=== PATIENT | male | born 1995 | race Caucasian/White ===

== ENCOUNTER 2018-01-14 00:58 | Emergency (ER) | payer OTHER ==
[2018-01-14] MEDS ORDERED: cloNIDine HCl 0.1 MG TAB ONE (01:18)
[2018-01-14] MEDS ORDERED: AMLODIPINE 5 MG TAB ONE (01:19)
--- NOTE | 2018-01-14 02:11 | ER ---
Nurse's Notes [facility] Name: Yahir Kinney Age: 22 yrs Sex: Male : 1995 Arrival Date: 01/14/2018 Time: 00:59 Bed 8 Private MD: Diagnosis: Hypertensive heart disease Presentation: 01/14 01:10 Presenting complaint: Patient states: "I had blood pressure for the past few years. ao Today I felt like my blood pressure is high and I decided to come to the ER.". Transition of care: patient was not received from another setting of care. Onset of symptoms is unknown. Risk Assessment: Do you want to hurt yourself or someone else? Patient reports no desire to harm self or others. Initial Sepsis Screen: Does the patient meet any 2 criteria? No. Patient's initial sepsis screen is negative. Does the patient have a suspected source of infection? No. Patient's initial sepsis screen is negative. Care prior to arrival: None. 01:10 Method Of Arrival: Ambulatory ao 01:10 Acuity: LIZZY 3 ao Historical: - Allergies: 01:47 No Known Allergies; ao - Home Meds: 01:14 None [Active]; ao - PMHx: 01:14 Hypertension; ao - PSHx: 01:14 None; ao - Immunization history:: Adult Immunizations up to date. - Social history:: Smoking status: Patient/guardian denies using tobacco, Patient uses alcohol, occasionally. Patient/guardian denies using street drugs. - Ebola Screening: : Patient negative for fever greater than or equal to 101.5 degrees Fahrenheit, and additional compatible Ebola Virus Disease symptoms Patient denies exposure to infectious person Patient denies travel to an Ebola-affected area in the 21 days before illness onset. Screenin:14 Abuse screen: Denies threats or abuse. Denies injuries from another. Nutritional ao screening: No deficits noted. Tuberculosis screening: No symptoms or risk factors identified. Fall Risk None identified. Assessment: 01:15 General: Appears in no apparent distress. comfortable, Behavior is calm, cooperative, ao appropriate for age. Pain: Denies pain. Neuro: Level of Consciousness is awake, alert, obeys commands, Oriented to person, place, time, situation, Appropriate for age Moves all extremities. Speech is normal, Facial symmetry appears normal, Pupils are PERRLA. Cardiovascular: Capillary refill < 3 seconds Patient's skin is warm and dry. Respiratory: Airway is patent Trachea midline Respiratory effort is even, unlabored, Respiratory pattern is regular, symmetrical. GI: Abdomen is flat, non-distended. : No signs and/or symptoms were reported regarding the genitourinary system. EENT: No signs and/or symptoms were reported regarding the EENT system. Derm: No signs and/or symptoms reported regarding the dermatologic system. Musculoskeletal: No signs and/or symptoms reported regarding the musculoskeletal system. 02:05 Reassessment: Patient appears in no apparent distress at this time. No changes from ak1 previously documented assessment. Patient is alert, oriented x 3, equal unlabored respirations, skin warm/dry/pink. 02:19 Reassessment: DC instructions given to patient. Patient understand the POC and to ao follow up with a PCP. Patient agree to follow up and continue with blood pressure medications regime. Vital Signs: 01:12 BP 168 / 124; Pulse 60; Resp 16; Temp 97.8(O); Pulse Ox 100% on R/A; Weight 74.84 kg; ao Height 6 ft. 0 in. (182.88 cm) (R); Pain 0/10; 01:40 BP 150 / 112; ak1 02:06 BP 133 / 104; Pulse 61; Resp 16; Pulse Ox 97% on R/A; ak1 02:19 BP 133 / 104; Pulse 61; Resp 14; Pulse Ox 97% on R/A; Pain 0/10; ao 01:12 Body Mass Index 22.38 (74.84 kg, 182.88 cm) ao ED Course: 00:59 Patient arrived in ED. es 01:03 Ravi Lewis PA is PHCP. cp 01:03 Leonardo Wilson MD is Attending Physician. cp 01:10 Benny Murray, DEMARCO is Primary Nurse. ao 01:12 Triage completed. ao 01:14 Arm band placed on right wrist. ao 01:16 Patient has correct armband on for positive identification. Pulse ox on. NIBP on. ao 02:21 No provider procedures requiring assistance completed. Patient did not have IV access ao during this emergency room visit. Administered Medications: 01:20 Drug: cloNIDine 0.2 mg Route: PO; ak1 02:22 Follow up: Response: Blood pressure is lowered ao 01:20 Drug: Norvasc 10 mg Route: PO; ak1 02:22 Follow up: Response: No adverse reaction; Blood pressure is lowered ao Outcome: 02:11 Discharge ordered by . marty 02:21 Discharged to home ambulatory. ao 02:21 Condition: stable 02:21 Discharge instructions given to patient, Instructed on discharge instructions, follow up and referral plans. Demonstrated understanding of instructions, follow-up care, medications, Prescriptions given X 1. 02:21 Patient left the ED. ao Signatures: Deb Blank Amber, RN RN ak1 Ravi Lewis PA PA cp Ortiz, Alex, RN RN ao
--- NOTE | 2018-01-14 02:11 | EDPHYS ---
Physician Documentation [facility] Name: Yahir Kinney Age: 22 yrs Sex: Male : 1995 Arrival Date: 01/14/2018 Time: 00:59 Bed 8 Private MD: ED Physician Leonardo Wilson HPI: 01/14 01:17 This 22 yrs old Male presents to ER via Ambulatory with complaints of High cp Blood Pressure. 01:17 Onset: The symptoms/episode began/occurred at an unknown time. Associated signs and cp symptoms: Pertinent negatives: chest pain, dizziness, headache, lightheadedness, visual changes, vomiting, weakness. Severity of symptoms: in the emergency department the blood pressure is unchanged. Patient reports history of hypertension in the past and being prescribed Losartan. Patient reports stopping medication over 1 year ago because he felt like blood pressure remained elevated. Patient reports he did not f/u with doctor. Historical: - Allergies: 01:47 No Known Allergies; ao - Home Meds: 01:14 None [Active]; ao - PMHx: 01:14 Hypertension; ao - PSHx: 01:14 None; ao - Immunization history:: Adult Immunizations up to date. - Social history:: Smoking status: Patient/guardian denies using tobacco, Patient uses alcohol, occasionally. Patient/guardian denies using street drugs. - Ebola Screening: : Patient negative for fever greater than or equal to 101.5 degrees Fahrenheit, and additional compatible Ebola Virus Disease symptoms Patient denies exposure to infectious person Patient denies travel to an Ebola-affected area in the 21 days before illness onset. ROS: 01:25 Constitutional: Negative for body aches, chills, fever, poor PO intake. cp 01:25 Eyes: Negative for injury, pain, redness, and discharge. cp 01:25 ENT: Negative for drainage from ear(s), ear pain, sore throat, difficulty swallowing, difficulty handling secretions. 01:25 Neck: Negative for pain with movement, pain at rest, stiffness, tenderness. 01:25 Cardiovascular: Negative for chest pain, edema, palpitations. 01:25 Respiratory: Negative for cough, shortness of breath, wheezing. 01:25 Abdomen/GI: Negative for abdominal pain, nausea, vomiting, and diarrhea, black/tarry stool, rectal bleeding. 01:25 Back: Negative for pain at rest, pain with movement, radiated pain. 01:25 : Negative for urinary symptoms. 01:25 MS/extremity: Negative for injury or acute deformity, pain, paresthesias, swelling, tenderness. 01:25 Skin: Negative for cellulitis, rash. 01:25 Neuro: Negative for altered mental status, dizziness, headache, syncope, near syncope, visual changes, weakness. 01:25 All other systems are negative. Exam: 01:30 Constitutional: The patient appears in no acute distress, alert, awake, comfortable, cp non-diaphoretic, non-toxic, well developed, well nourished. 01:30 Head/Face: Normocephalic, atraumatic. cp 01:30 Eyes: Periorbital structures: appear normal, Pupils: equal, round, and reactive to light and accomodation, Extraocular movements: intact throughout, Conjunctiva: normal, no exudate, no injection, Sclera: no appreciated abnormality, Lids and lashes: appear normal, bilaterally. 01:30 ENT: External ear(s): are unremarkable, Ear canal(s): are normal, clear, TM's: bulging, is not appreciated, bilaterally, dullness, bilaterally, erythema, is not appreciated, bilaterally, Nose: is normal, Mouth: Lips: moist, Oral mucosa: pink and intact, moist, Posterior pharynx: is normal, airway is patent, no erythema, no exudate, Voice: is normal. 01:30 Neck: External neck: is normal, ROM/movement: is normal, is supple, without pain, no range of motions limitations, no nuchal rigidity. 01:30 Chest/axilla: Inspection: normal, Palpation: is normal, no crepitus, no tenderness. 01:30 Cardiovascular: Rate: normal, Rhythm: regular, Pulses: Pulses are 2+ in right radial artery and left radial artery. Edema: is not appreciated, JVD: is not appreciated. 01:30 Respiratory: the patient does not display signs of respiratory distress, Respirations: normal, no use of accessory muscles, no retractions, no splinting, no tachypnea, labored breathing, is not present, Breath sounds: are clear throughout, no decreased breath sounds, no stridor, no wheezing. 01:30 Abdomen/GI: Inspection: abdomen appears normal, Palpation: abdomen is soft and non-tender, in all quadrants, rebound tenderness, is not appreciated, voluntary guarding, is not appreciated, involuntary guarding, is not appreciated. 01:30 Back: pain, is absent, ROM is normal. 01:30 Skin: cellulitis, is not appreciated, no rash present. 01:30 Neuro: Orientation: to person, place \T\ time. Mentation: is normal, Cerebellar function: is grossly normal, Motor: moves all fours, strength is normal, Sensation: is normal, Gait: is steady, at a normal pace, without difficulty. Vital Signs: 01:12 BP 168 / 124; Pulse 60; Resp 16; Temp 97.8(O); Pulse Ox 100% on R/A; Weight 74.84 kg; ao Height 6 ft. 0 in. (182.88 cm) (R); Pain 0/10; 01:40 BP 150 / 112; ak1 02:06 BP 133 / 104; Pulse 61; Resp 16; Pulse Ox 97% on R/A; ak1 02:19 BP 133 / 104; Pulse 61; Resp 14; Pulse Ox 97% on R/A; Pain 0/10; ao 01:12 Body Mass Index 22.38 (74.84 kg, 182.88 cm) ao MDM: 01:04 Patient medically screened. cp 01:18 Differential diagnosis: hypertensive crisis, Malignant HTN, CVA, intracerebral cp hemorrhage. 02:10 Data reviewed: vital signs, nurses notes. cp 02:10 Counseling: I had a detailed discussion with the patient and/or guardian regarding: the cp historical points, exam findings, and any diagnostic results supporting the discharge/admit diagnosis, the need for outpatient follow up, a family practitioner, to return to the emergency department if symptoms worsen or persist or if there are any questions or concerns that arise at home. Response to treatment: the patient's symptoms have markedly improved after treatment, and as a result, I will discharge patient. 02:10 Special discussion: I have referred the patient to see his PCP for further evaluation cp of high blood pressure. Administered Medications: 01:20 Drug: cloNIDine 0.2 mg Route: PO; ak1 02:22 Follow up: Response: Blood pressure is lowered ao 01:20 Drug: Norvasc 10 mg Route: PO; ak1 02:22 Follow up: Response: No adverse reaction; Blood pressure is lowered ao Disposition: 01/14/18 02:11 Discharged to Home. Impression: Hypertensive heart disease. - Condition is Stable. - Discharge Instructions: Hypertension, How to Take Your Blood Pressure, [id number], Managing Your High Blood Pressure. - Prescriptions for Norvasc 5 mg Oral Tablet - take 1 tablet by ORAL route once daily; 20 tablet. - Medication Reconciliation Form, Thank You Letter, Antibiotic Education, Prescription Opioid Use form. - Follow up: Private Physician; When: 1 - 2 days; Reason: Recheck today's complaints. - Problem is chronic. - Symptoms have improved. Addendum: 01/15/2018 06:29 Co-signature as Attending Physician, Leonardo Wilson MD I agree with the assessment and t w4 plan of care. Signatures: Nita Hernandez, RN RN ak1 Ravi Lewis PA PA cp Ortiz, Alex RN RN Leonardo Teague MD MD tw4 Corrections: (The following items were deleted from the chart) 01/14 02:21 02:11 01/14/2018 02:11 Discharged to Home. Impression: Hypertensive heart disease. ao Condition is Stable. Forms are Medication Reconciliation Form, Thank You Letter, Antibiotic Education, Prescription Opioid Use. Follow up: Private Physician; When: 1 - 2 days; Reason: Recheck today's complaints. Problem is chronic. Symptoms have improved. cp 20:57 01/13 01:30 Constitutional: The patient appears in no acute distress, alert, awake, cp non-diaphoretic, non-toxic, well developed, well nourished, cp 01/14 20:57 01/13 01:30 Head/Face: Normocephalic, atraumatic. cp cp 01/14 20:57 01/13 01:30 Eyes: Periorbital structures: appear normal, Pupils: equal, round, and cp reactive to light and accomodation, Extraocular movements: intact throughout, Conjunctiva: normal, no exudate, no injection, Sclera: no appreciated abnormality, Lids and lashes: appear normal, bilaterally, cp 01/14 20:57 01/13 01:30 ENT: External ear(s): are unremarkable, Ear canal(s): are normal, clear, cp TM's: bulging, is not appreciated, bilaterally, dullness, bilaterally, erythema, is not appreciated, bilaterally, Nose: is normal, Mouth: Lips: moist, Oral mucosa: pink and intact, moist, Posterior pharynx: is normal, airway is patent, no erythema, no exudate, Voice: is normal, cp 01/15 20:01/13 01:30 Neck: External neck: is normal, ROM/movement: is normal, is supple, without cp pain, no range of motions limitations, no nuchal rigidity, cp 01/14 01:30 Chest/axilla: Inspection: normal, Palpation: is normal, no crepitus, no cp tenderness, cp 01/15 20:01/13 01:30 Cardiovascular: Rate: normal, Rhythm: regular, Pulses: Pulses are 2+ in cp right radial artery and left radial artery. Edema: is not appreciated, JVD: is not appreciated, cp 01/15 20:01/13 01:30 Respiratory: the patient does not display signs of respiratory distress, cp Respirations: normal, no use of accessory muscles, no retractions, no splinting, no tachypnea, labored breathing, is not present, Breath sounds: are clear throughout, no decreased breath sounds, no stridor, no wheezing, cp 01/15 20:01/13 01:30 Abdomen/GI: Inspection: abdomen appears normal, Bowel sounds: active, all cp quadrants, Palpation: abdomen is soft and non-tender, in all quadrants, rebound tenderness, is not appreciated, voluntary guarding, is not appreciated, involuntary guarding, is not appreciated, cp 01/15 20:01/13 01:30 Back: pain, is absent, ROM is normal, cp cp 01/15 20:01/13 01:30 Musculoskeletal/extremity: Extremities: all appear grossly normal, with no cp appreciated pain with palpation, cp 01/15 20:01/13 01:30 Skin: cellulitis, is not appreciated, no rash present. cp cp 01/15 20:01/13 01:30 Neuro: Orientation: to person, place \T\ time. Mentation: lucid, able to cp follow commands, Cerebellar function: is grossly normal, Motor: moves all fours, strength is normal, Sensation: no obvious gross deficits, Gait: is steady, at a normal pace, without difficulty, cp
== END 2018-01-14 02:21 | disposition home or self-care (01) ==
LOC: ER 00:58
DX: I11.9 Hypertensive heart disease without heart failure (principal)
CPT/HCPCS: 99283

== ENCOUNTER 2023-10-31 07:39 | Day surgery (SDC) | payer BC ==
[2023-10-30 14:09] LABS: Albumin 4.3 g/dL (3.4-5.0); Albumin/Globulin Ratio 1.3 (1.1-1.8); Anion Gap 7.2 mEq/L (5.0-15.0); Bilirubin Direct 0.2 mg/dL (0-0.2); Bilirubin Indirect, Calculated 0.3 mg/dL (0.2-0.8); Bilirubin Total 0.5 mg/dL (0.2-1.0); Globulin 3.4 g/dL (2.3-3.5); Potassium 4.2 mEq/L (3.5-5.1); Protein, Total 7.7 g/dL (6.4-8.2)
[2023-10-30 15:04] LABS: Absolute Basophils 0.1 K/uL (0-0.5); Absolute Eosinophils 0.1 K/uL (0-0.5); Absolute Lymphocytes (CBC) 1.6 K/uL (0.7-4.9); Absolute Monocytes 0.4 K/uL (0.1-1.3); Absolute Neutrophil 1.9 K/uL (1.8-8.0); Basophils % 2.1 % (0-1.3); Eosinophils % 3.4 % (0-4.4); Hematocrit 45.9 % (39.6-49.0); Hemoglobin 15.4 g/dL (13.6-17.9); Lymphocytes % 39.3 % (15.3-44.8); MCH 30.1 pg (27.0-35.0); MCHC 33.4 g/dL (32.0-36.0); MCV 89.9 fL (80-100); MPV 8.4 fL (7.6-11.3); Monocytes % 9.2 % (3.3-12.3); Nucleated Red Blood Cells % 0.2 % (0-0); Platelets 336 thou/uL (152-406); RBC Red Blood Cell Count 5.11 M/uL (4.33-5.43); Red Cell Distribution Width 12.8 % (12.1-15.2)
[2023-10-31] MEDS ORDERED: CEFAZOLIN SODIUM 1 GM/VIAL ONE (07:55)
[2023-10-31] MEDS: Ringers Lactate 1,000 ML IV ONE (08:00)
[2023-10-31 08:44] VITALS: O2SAT 100
[2023-10-31] MEDS ORDERED: ROCURONIUM 50 MG/5 ML VIAL IV ONE (10:49)
[2023-10-31] MEDS ORDERED: FENTANYL CITR 100 MCG/2 ML ONE (10:49)
[2023-10-31] MEDS ORDERED: LIDOCAINE 2% MPF 5 ML VIAL ONE (10:49)
[2023-10-31] MEDS ORDERED: MIDAZOLAM HCL 2 MG/2 ML INJ ONE (10:49)
[2023-10-31] MEDS ORDERED: ONDANSETRON 4 MG/2 ML VIAL ONE (10:49)
[2023-10-31] MEDS ORDERED: propofoL 200 MG/20 ML VIAL IV ONE (10:49)
[2023-10-31] MEDS ORDERED: HYDROMORPHONE HCL 1 MG/ML INJ ONE (10:56)
[2023-10-31] MEDS: CEFOXITIN SODIUM 1 GM/VIAL ONE (11:27)
[2023-10-31] MEDS ORDERED: dexAMETHasone 10 MG/ML VIAL ONE (11:30)
[2023-10-31] MEDS ORDERED: EPHEDRINE SULF 50 MG/ML VIAL ONE (11:37)
[2023-10-31] MEDS ORDERED: KETOROLAC 30 MG/ML INJ ONE (12:07)
[2023-10-31] MEDS ORDERED: NEOSTIGMINE 1 MG/ML -10 ML VIAL ONE (12:07)
[2023-10-31] MEDS ORDERED: GLYCOPYRROLATE 0.2 MG/ML SYR ONE (12:07)
[2023-10-31] MEDS ORDERED: Mastisol Adhesive Liq ONE (12:12)
--- NOTE | 2023-10-31 12:20 | P.BOP ---
Preoperative diagnosis: symptomatic cholelithiasis, acute cholecystitis, RUQ abd pain Postoperative diagnosis: same, intrabd adhesions Primary procedure: Laparoscopic cholecystectomy Estimated blood loss: <10cc Specimen: gb Findings: as above Anesthesia: General Complications: None Transferred to: Recovery Room Condition: Good
[2023-10-31] MEDS: HYDRALAZINE HCL 20 MG/ML VIAL ONE (12:41)
[2023-10-31] MEDS: HYDROMORPHONE HCL 1 MG/ML INJ ONE (12:54)
[2023-10-31 14:33] VITALS: BP 136/89; TEMP 97.2
--- NOTE | 2023-10-31 15:05 | OP ---
Date of Procedure: 10/31/2023 Surgeon: Lance Abdalla MD Preoperative Diagnoses: Symptomatic cholelithiasis, acute cholecystitis, right upper quadrant abdomi nal pain. Postoperative Diagnoses: Symptomatic cholelithiasis, acute cholecystitis, right upper quadrant abdom inal pain. Procedure: Laparoscopic cholecystectomy. Estimated Blood Loss: Less than 10 cc. Specimen: Gallbladder. Anesthesia: General plus local. Complications: None. Indications: This is a case of a 27-year-old patient who came to us with recurrent epigastric right upper quadrant pain, diagnosed with gallbladder sludge present in that region. I discussed several d ifferent options that would also include laparoscopic, possible open cholecystectomy and benefits, al ternatives, risks also fully explained, which include, but not limited to, infection, bleeding, damag e to adjacent structures, anesthesia complication, choledocholithiasis, bile leak, pancreatitis, KS, and even . He also understands this may not relieve any symptoms. He might need more than one surgical intervention. He preferred surgical plan since he is trying to change his diet and he is st ill not improving, the patient diagnosed with acute cholecystitis too. Description Of Procedure: The patient was brought to the operating room, placed in supine position. Anesthesia was done without complication. Abdominal area was prepped and draped in the usual steril e fashion. Marcaine 0.5% was injected for local anesthetic followed by sharp incision of the skin in the periumbilical region. Patient had previous incisions in that area, so we were trying to use the same incision he had before to minimize scars on him. An incision was carried down to fascia, which was opened under direct vision. Peritoneum was encountered, opened under direct vision. Vicryl #1 placed inside the fascia. Efrem trocar was carefully introduced. Pneumoperitoneum was obtained. U nessa entering that area, we noticed the patient had some scar tissue there. Patient has previous intr aabdominal surgeries for some kidney's pathology. So with the help of LigaSure, we were able to moi ve those adhesions down from the anterior abdominal wall, so we can proceed with the cholecystectomy. Also many adhesions of omentum to the gallbladder consistent with cholecystitis was also visualized . So, we placed 3 more trocars, 5 mm each one of them, epigastric and right upper quadrant area and with the help of that, we were able to remove those adhesions down, also obtaining hemostasis. A gra sper was placed in the fundus of the gallbladder, another grasper in the infundibulum, retracted the gallbladder in the inferolateral fashion exposing the triangle of Calot, obtaining critical view. Cy stic duct and cystic artery were clearly isolated, freed circumferentially and a connection between t hose and the gallbladder were clearly identified. I proceeded to ligate those by using at least 3 cl ips proximal, 1 clip distal, ligation in the middle. Same was done with the cystic artery. No bile leak. No bleeding. The gallbladder was removed from the liver using Bovie cauterizer and removed fr om abdominal cavity using EndoCatch through the umbilical incision. Area was inspected once again. No bile leak. No bleeding. At that moment, I proceeded to remove the trocars under direct vision, n ot without first making sure the area of the lysis of adhesions are taken care of, and there was no b leeding or any enterotomies. I removed the trocars under direct vision, deflated the pneumoperitoneu m. Closed the fascia with #1 Vicryl. Irrigated subcutaneous tissue, closed that with 3-0 chromic an d the skin in a subcuticular fashion with 3-0 chromic and Steri-Strips on top. Sponge counts and ins trument counts were correct. Patient tolerated the procedure well. Patient was sent to Recovery in stable condition. [place]/MARK Voice ID: [id number] Report ID: [id number]
--- NOTE | 2023-10-31 15:07 | DS ---
Date of Discharge: 10/31/2023 Diagnoses: Symptomatic cholelithiasis, acute cholecystitis, right upper quadrant abdominal pain, int raabdominal adhesions. Condition: Stable. Disposition: Home. Activity: As tolerated. No heavy lifting. Plan: Follow up in my office in 1 week. Call for appointment [phone]. Keep area dry for 48 hours, then may shower. Keep Steri-Strip intact. [place]/MARK Voice ID: [id number] Report ID: [id number]
== END 2023-10-31 14:38 | disposition home or self-care (01) ==
LOC: OR 07:39
PROVIDERS: ATTEND Surgery
PROC: 0FT44ZZ Resection of Gallbladder, Percutaneous Endoscopic Approach (ICD-10-PCS; principal; 2023-10-31 10:30)
DX: K81.1 Chronic cholecystitis (principal); R10.11 Right upper quadrant pain
CPT/HCPCS: 85025; 80048; 36415; 80076; 88302; 88304; 83690; 47562; J0360; J2704; J2710; J2001; J2250; J3010; J1100; J1170 ×2; J0694; J2405; J7120; J0690